=== PATIENT | male | born 1980 | race Caucasian/White ===

== ENCOUNTER 2018-09-02 00:28 | Emergency (ER) | payer SELFPAY ==
[~2018-09-02] VITALS: Ht 182.9 cm; Wt 109.1 kg
[2018-09-02 01:39] LABS: ALBUMIN 4.4 g/dL (3.2-5.0); ALKALINE PHOSPHATASE 75 u/l (38-126); ANION GAP 15 (6-22 (CALC)); BILIRUBIN, TOTAL 0.7 mg/dL (0.0-1.4); BUN 18 mg/dL (9-20); BUN/CREATININE RATIO 24 (12-20 (CALC)); CARBON DIOXIDE 22 mmol/l (22-30); CHLORIDE 109 mmol/l (95-108); CREATININE 0.7 mg/dL (0.7-1.3); GFR > 60 ML/MIN (>=60 (CALC)); GFR FOR AFR.AMER. > 60 ML/MIN (>=60 (CALC)); POTASSIUM 4.2 mmol/l (3.5-5.1); SGOT/AST 36 u/l (17-59); SODIUM 141 mmol/l (137-146); TOTAL PROTEIN 6.9 g/dL (6.3-8.2)
[2018-09-02 01:40] LABS: AMYLASE 52 u/l (30-110); LIPASE 186 u/l (23-300)
[2018-09-02 01:42] LABS: HEMATOCRIT 40.7 % (39.0-50.0); HEMOGLOBIN 13.8 g/dl (14.0-18.0); IMMATURE GRANULOCYTES 0.3 % (0.0-5.0); MEAN CELL VOLUME 92.3 fL CALC (80.0-100.0); MEAN CORPUSCULAR HGB 31.3 pG CALC (26.0-32.0); MEAN CORPUSCULAR HGB CONC 33.9 g/L CALC (32.0-36.0); NEUT# 6.18 thou/uL (1.82-7.42); RED BLOOD COUNT 4.41 mill/uL (4.70-6.10); RED CELL DISTRI WIDTH 12.2 % (11.5-15.5)
[2018-09-02 01:53] LABS: MYOGLOBIN 42 ng/mL (0 - 121)
[2018-09-02] MEDS ORDERED: PEPCID20 MG PO (02:41)
[2018-09-02] MEDS ORDERED: CARPAL TUNNEL W1 MIS EX (02:41)
[2018-09-02 02:50] VITALS: BP 131/70
== END 2018-09-02 02:50 | disposition home or self-care (01) | DRG 392 ==
LOC: ED 00:28
PROVIDERS: Family Medicine
DX: K21.9 Gastro-esophageal reflux disease without esophagitis (principal); G56.03 Carpal tunnel syndrome, bilateral upper limbs